=== PATIENT | female | born 1995 ===

== ENCOUNTER → 2022-03-24 | Outpatient (CLI) | payer SELFPAY ==
[~2022-03-24] MED LIST: ACHD5005 PO; DCS100C PO; FERR-57 PO; IBP600T1 PO; OMEP40CA6 PO; PNV1TABL9 PO
== END | disposition home or self-care (01) ==
LOC: PREOP 05:40
PROVIDERS: ATTEND Obstetrics & Gynecology
DX: Z01.818 Encounter for other preprocedural examination (principal)

== ENCOUNTER 2022-03-27 09:45 | Inpatient (IN) | payer OTHER ==
[~2022-03-27] VITALS: Ht 159 cm; Wt 75.1 kg
[2022-03-27] VITALS (9 sets, daily range): BP systolic 93–131; BP diastolic 50–74
[2022-03-27 10:10] LABS: BASOPHILS % (AUTO) 0 % (0-10); EOSINOPHILS % (AUTO) 0 % (0-10); HEMATOCRIT 31 % (35-52); HEMOGLOBIN 10.6 g/dL (11.5-16.0); LYMPHOCYTES # (AUTO) 2.8 10^3/uL (1.0-4.0); LYMPHOCYTES % (AUTO) 39 % (12-44); MEAN CORPUSCULAR HEMOGLOBIN 31 pg (25-34); MEAN CORPUSCULAR HGB CONC 34 g/dL (32-36); MEAN CORPUSCULAR VOLUME 90 fL (80-99); MEAN PLATELET VOLUME 9.7 fL (9.0-12.2); MONOCYTES # (AUTO) 0.6 10^3/uL (0.0-1.0); MONOCYTES % (AUTO) 9 % (0-12); NEUTROPHILS # (AUTO) 3.6 10^3/uL (1.8-7.8); NEUTROPHILS % (AUTO) 51 % (42-75); PLATELET COUNT 394 10^3/uL (130-400); WHITE BLOOD COUNT 7.1 10^3/uL (4.3-11.0)
[2022-03-27] MEDS ORDERED: metroNIDAZOLE 500MG/100ML IVPB 100 ML IV ONE (10:15)
[2022-03-27] MEDS ORDERED: D5 LR IV SOLUTION 1,000 ML IV SCH ×2 (10:15→14:15)
[2022-03-27] MEDS ORDERED: ceFAZolin INJECTION 2,000 MG in NS (IVPB) 50 ML IV ONE (10:15)
[2022-03-27] MEDS ORDERED: CITRIC ACID/SOB CIT (BICITRA) 30 ML UDC ONE (11:45)
[2022-03-27] MEDS ORDERED: METOCLOPRAMIDE INJ 10 MG/2 ML (REGLAN) ONE (11:45)
[2022-03-27] MEDS ORDERED: FAMOTIDINE 20MG/2ML IV (PEPCID) ONE (11:46)
[2022-03-27] MEDS ORDERED: ceFAZolin INJECTION 2,000 MG ONE (11:49)
[2022-03-27] MEDS ORDERED: LACTATED RINGERS 1,000 ML IV PRN (12:00)
[2022-03-27] MEDS ORDERED: FAMOTIDINE 20MG/2ML IV (PEPCID) IV ONE (12:00)
[2022-03-27] MEDS ORDERED: CITRIC ACID/SOB CIT (BICITRA) 30 ML UDC PO ONE (12:00)
[2022-03-27] MEDS ORDERED: METOCLOPRAMIDE INJ 10 MG/2 ML (REGLAN) IV ONE (12:00)
[2022-03-27] MEDS ORDERED: FLU QUADRIvalent (6 months+) 60 mcg/0.5 ml 2022-23 (Fluzone) IM ONE (12:30)
[2022-03-27] MEDS ORDERED: ONDANSETRON 4 MG/2 ML (SDV) Z0FRAN ONE (12:37)
[2022-03-27] MEDS ORDERED: fentaNYL INJ 100 MCG/2 ML AMP ONE (12:38)
[2022-03-27] MEDS: OXYTOCIN PRE-MIX DRIP 500 ML IV SCH ×2 (13:30→16:40)
[2022-03-27] MEDS ORDERED: BUPIVACAINE 0.5% 30 ML (SENSORCAINE) VIAL ONE (13:38)
[2022-03-27] MEDS ORDERED: OXYTOCIN PRE-MIX DRIP 500 ML IV ONE (13:38)
[2022-03-27] MEDS ORDERED: KETOROLAC 30 MG/ML VIAL ONE (14:09)
[2022-03-27] MEDS ORDERED: PROMETHAZINE INJ 25 MG/ML (PHENERGAN) AMP IM PRN (14:15)
[2022-03-27] MEDS ORDERED: MEPERIDINE (DEMEROL) INJ 100 MG/ML IM PRN (14:15)
[2022-03-27] MEDS ORDERED: oxyCODONE/APAP 10/325MG (PERCOCET 10) TABLET PO PRN (14:15)
[2022-03-27] MEDS: KETOROLAC 30 MG/ML VIAL IV SCH ×2 (14:18→20:20)
[2022-03-27] MEDS: DOCUSATE SODIUM 100 MG (COLACE) CAP PO SCH (20:19)
--- NOTE | 2022-03-27 23:50 | OPERATIVE REPORT ---
DATE OF SERVICE: 03/27/2022 CONTROL ENGINEER: Dr. Shaw PREOPERATIVE DIAGNOSIS: Term with previous . POSTOPERATIVE DIAGNOSES: Term with previous . PROCEDURE: Repeat low transverse delivery of a viable male infant with Apgars of 8 and 9 at 1 and 5 minutes respectively, weighing 7 pounds 7 ounces, cord blood pH of 7.26 and the time of 13:36. DESCRIPTION OF PROCEDURE: With the patient in the supine position, under satisfactory spinal analgesia, she was prepped and draped in the usual fashion for abdominal surgery. A repeat Pfannenstiel incision was made through the skin with a scalpel. The patient's abdomen was entered in the usual manner. Bladder retractor placed in position. Clean scalpel used to make a 4 cm hysterotomy incision transversely across the lower uterine segment. That incision was extended bluntly. Gamino forceps were applied to facilitate the delivery of a vigorous viable male infant with Apgars and stats as noted above. Delivery did require extending the incision with bandage scissors, a small amount to accommodate the presenting part, which was the vertex. The infant was bulb suctioned on delivery of the head and again on completion of delivery. The umbilical cord was doubly clamped and cut and Dr. Briones took the infant down to the warmer. Cord bloods were obtained. The placenta delivered spontaneously Lawrence. It was normal with a 3-vessel cord. The uterus was exteriorized and the interior wiped clean with a wet laparotomy sponge. Uterine incision was then closed with a running locked suture of 2-0 Vicryl. Hemostasis was complete. The uterus was returned to the abdominal cavity. All blood clot and debris removed from the abdominal cavity. Sponge and needle counts were correct. Hemostasis assured. Anterior parietoperitoneum was closed with running suture of 2-0 Vicryl. The rectus muscles were closed with that suture as well. The rectus fascia was closed with 2-0 Vicryl. Subcutaneous tissue was closed with 2-0 Vicryl and the skin was stapled. Sponge and needle counts were correct on completion of the procedure. Blood loss was around 300 mL. The patient tolerated the procedure well and was transferred to the recovery room in stable condition. The had been taken stable to the full term nursery under the care of Dr. Shaw Job ID: [id number] DocumentID: [id number] Dictated Date: 03/27/2022 15:13:10 Underbaster Date: 03/27/2022 21:42:00 Dictated By: MICHAEL GRIGGS MD MTDD
[2022-03-28 00:52] VITALS: BP 106/57
[2022-03-28] MEDS: KETOROLAC 30 MG/ML VIAL IV SCH ×2 (01:51→09:00)
[2022-03-28 04:30] VITALS: BP 101/58
--- NOTE | 2022-03-28 07:56 | Progress Note ---
Standard Progress Note Progress Notes/Assess & Plan Date Seen by a Provider: Mar 28, 2022 Time Seen by a Provider: 07:55 Progress/Assessment & Plan This patient is without complaint. She is ambulating, voiding, tolerating oral intake well and has good pain control. Vital Signs Date Time Temp Pulse Resp B/P (MAP) Pulse Ox O2 Delivery O2 Flow Rate FiO2 03/28/22 04:30 37.0 77 16 101/58 (72) 97 Room Air 03/28/22 00:52 36.4 73 18 106/57 (73) 97 Room Air 03/27/22 20:20 36.8 76 18 105/56 (72) 98 Room Air 03/27/22 15:00 36.2 63 18 131/72 (91) 98 Room Air 03/27/22 14:50 36.5 18 104/69 (81) 99 Room Air 03/27/22 14:50 Room Air 03/27/22 14:40 20 103/61 (75) 99 Room Air 03/27/22 14:30 20 115/73 (87) 98 Room Air 03/27/22 14:30 Room Air 03/27/22 14:20 16 113/70 (84) 99 Room Air 03/27/22 14:15 Room Air 03/27/22 14:10 18 111/74 (86) 99 Room Air 03/27/22 14:00 Room Air 03/27/22 14:00 36.5 28 93/50 (64) 98 Room Air 03/27/22 09:44 36.5 72 18 98 Room Air I & O 03/28/22 07:00 Intake Total 3080 ml Output Total 1650 ml Balance 1430 ml Vital signs are stable. Patient is afebrile. The abdomen is benign. The surgical incision is clean dry and intact. Fundus is firm below the umbilicus and nontender. Extremities show no clubbing cyanosis. There is no Homans' sign. Assessment and plan Post operative day #1 status post repeat delivery doing well. Plan for routine convalescent care MICHAEL GRIGGS MD Mar 28, 2022 07:56
[2022-03-28 09:00] VITALS: BP 103/58
[2022-03-28] MEDS: DOCUSATE SODIUM 100 MG (COLACE) CAP PO SCH ×2 (09:00→21:04)
[2022-03-28 13:50] VITALS: BP 112/63
[2022-03-28] MEDS ORDERED: IBUPROFEN 800 MG (MOTRIN) TAB PO SCH (14:15)
--- NOTE | 2022-03-28 15:08 | Anesthesia-Regional Post-Op ---
Regional Patient Condition Mental Status: Alert, Oriented x3 Circulation: Same as Pre-Op Headache: Absent Sensation: Full Recovery Motor Block: Absent Post Op Complications Complications None Follow Up Care/Instructions Patient Instructions None needed. Anesthesia/Patient Condition Patient is doing well, no complaints, stable vital signs, no apparent adverse anesthesia problems. No complications reported per nursing. ROSE MARIE MELLO CRNA Mar 28, 2022 15:08
[2022-03-28] MEDS ORDERED: FLU QUADRIvalent (6 months+) 60 mcg/0.5 ml 2022-23 (Fluzone) IM ONE (15:17)
[2022-03-28] MEDS: IBUPROFEN 800 MG (MOTRIN) TAB PO SCH ×2 (15:22→21:05)
[2022-03-28 20:00] VITALS: BP 112/62
[2022-03-29 02:25] VITALS: BP 108/62
[2022-03-29] MEDS: IBUPROFEN 800 MG (MOTRIN) TAB PO SCH ×2 (02:26→08:37)
--- NOTE | 2022-03-29 07:01 | Progress Note ---
Standard Progress Note Progress Notes/Assess & Plan Date Seen by a Provider: Mar 29, 2022 Time Seen by a Provider: 07:00 Progress/Assessment & Plan This patient is without complaint. She is ambulating, voiding, tolerating oral intake well and has good pain control. Vital Signs Date Time Temp Pulse Resp B/P (MAP) Pulse Ox O2 Delivery O2 Flow Rate FiO2 03/28/22 04:30 37.0 77 16 101/58 (72) 97 Room Air 03/28/22 00:52 36.4 73 18 106/57 (73) 97 Room Air 03/27/22 20:20 36.8 76 18 105/56 (72) 98 Room Air 03/27/22 15:00 36.2 63 18 131/72 (91) 98 Room Air 03/27/22 14:50 36.5 18 104/69 (81) 99 Room Air 03/27/22 14:50 Room Air 03/27/22 14:40 20 103/61 (75) 99 Room Air 03/27/22 14:30 20 115/73 (87) 98 Room Air 03/27/22 14:30 Room Air 03/27/22 14:20 16 113/70 (84) 99 Room Air 03/27/22 14:15 Room Air 03/27/22 14:10 18 111/74 (86) 99 Room Air 03/27/22 14:00 Room Air 03/27/22 14:00 36.5 28 93/50 (64) 98 Room Air 03/27/22 09:44 36.5 72 18 98 Room Air I & O 03/28/22 07:00 Intake Total 3080 ml Output Total 1650 ml Balance 1430 ml Vital signs are stable. Patient is afebrile. The abdomen is benign. The surgical incision is clean dry and intact. Fundus is firm below the umbilicus and nontender. Extremities show no clubbing cyanosis. There is no Homans' sign. Assessment and plan Post operative day #1 status post repeat delivery doing well. Plan for routine convalescent care March 29, 2022 Patient without complaint. She is ambulating, voiding, tolerating oral intake well and has good pain control. Vital Signs Date Time Temp Pulse Resp B/P (MAP) Pulse Ox O2 Delivery O2 Flow Rate FiO2 03/29/22 02:25 36.7 69 16 108/62 (77) 98 Room Air 03/28/22 20:00 36.9 80 16 112/62 (79) 98 Room Air 03/28/22 13:50 36.4 86 18 112/63 (79) 98 Room Air 03/28/22 09:26 Room Air 03/28/22 09:00 36.8 72 18 103/58 (73) 98 Room Air Vital signs are stable. Patient is afebrile. The abdomen is benign. The surgical incision is clean dry and. Extremities show no clubbing or cyanosis. No Homans' sign. Assessment and plan Postoperative day #2 doing well status post repeat delivery. Patient will be allowed discharge home today or tomorrow as she prefers Final Diagnosis Repeat delivery MICHAEL GRIGGS MD Mar 29, 2022 07:01
[2022-03-29] MEDS ORDERED: OXYC1TAB12 PO (07:02)
[2022-03-29] MEDS ORDERED: DOCU100C37 PO (07:02)
[2022-03-29] MEDS ORDERED: IBUP-1780 PO (07:02)
--- NOTE | 2022-03-29 07:04 | Discharge Inst-Surgical ---
Discharge Inst-Surgical Depart Medication/Instructions New, Converted or Re-Newed RX: Transmitted to Pharmacy Consults/Follow Up Orders & Referrals Follow Up Appt: RTC 1 week for incision check With Dr. Beth Call to make follow up appt. for patient in [address] Arroyo Wound Care: Remove lata, apply benzoin and steri strips. Activity Per routine post instructions. Prescriptions for Percocet Motrin and Colace have been transmitted electronically to patient's pharmacy Diet as tolerated Patient may shower or tub bathe as desired. Continue home meds Activity Activity as Tolerated: No Diet Discharge Diet: No Restrictions MICHAEL BETH MD Mar 29, 2022 07:04
[2022-03-29 08:30] VITALS: BP 108/62
[2022-03-29] MEDS: DOCUSATE SODIUM 100 MG (COLACE) CAP PO SCH (08:36)
[2022-03-29 14:00] VITALS: BP 112/66
[2022-03-29 15:00] VITALS: BP 112/66
== END 2022-03-29 15:00 | disposition home or self-care (01) | DRG 788 ==
LOC: LDRP 09:45
PROVIDERS: ADMIT Obstetrics & Gynecology; ATTEND Obstetrics & Gynecology
PROC: 10D00Z1 Extraction of Products of Conception, Low, Open Approach (ICD-10-PCS; principal; 2022-03-27 13:15)
DX: O34.211 Maternal care for low transverse scar from previous cesarean delivery (principal); Z3A.39 39 weeks gestation of pregnancy; Z37.0 Single live birth
CPT/HCPCS: 36415; 85025; 86850; 86900; 86901; 90686; 94664